=== PATIENT | female | born 1975 | race African-American/Black ===

== ENCOUNTER 2016-12-20 11:54 | Emergency (ER) | payer MEDICAID ==
[~2016-12-20] VITALS: Ht 152.4 cm; Wt 59.0 kg
[~2016-12-20 11:54] MED LIST: ALPR1TAB2; GABA800T97; MIRT30TA; NAP500T; PROZAC; QUET25TA37
[2016-12-20 12:58] VITALS: BP 152/82
== END 2016-12-20 13:26 | disposition home or self-care (01) ==
LOC: ER 11:54
DX: S16.1XXA Strain of muscle, fascia and tendon at neck level, initial encounter (principal); S39.012A Strain of muscle, fascia and tendon of lower back, initial encounter; V49.49XA Driver injured in collision with other motor vehicles in traffic accident, initial encounter; Y93.89 Activity, other specified; Y99.8 Other external cause status; Y92.410 Unspecified street and highway as the place of occurrence of the external cause

== ENCOUNTER 2025-06-10 16:08 | Emergency (ER) | payer MEDICAID ==
[~2025-06-10] VITALS: Ht 152.4 cm; Wt 60.0 kg
[~2025-06-10 16:08] MED LIST changes: +MIRT-94; -MIRT30TA
[2025-06-10 16:33] VITALS: BP 174/82; PULSE 96; RESP 16; TEMP 97.8; O2SAT 99
--- NOTE | 2025-06-10 17:02 | ED.PDOC ---
Musculoskeletal HPI Comments 50y F who presents to the ED via EMS for chief complaint of fall injury. Pt states she was at [facility] and states she slipped and fell in puddle of water. Pt states she fell on the R side to to help break her fall and denies hitting her head or any associated loss of consciousness. Pt states since fall, she has been having neck pain, head and pain and associated bilateral lower extremity pain by her ankles. Pt rates the pain 4/10, constant, with no associated exacerbating or relieving factors. Pt otherwise denies any other symptoms at this time. Chief Complaint: Fall Injury Time Seen by MD: 16:54 Primary Care Provider: NONE Reviewed Notes: Medications, Allergies Allergies: Coded Allergies: NO KNOWN ALLERGIES (Unverified , 03/25/13) Home Meds Reported Medications Naproxen (NAPROSYN TABLET) 500 Mg Tb 07/08/13 Quetiapine Fumerate (Seroquel) 25 Mg Tab 07/08/13 Gabapentin (Gabapentin) 800 Mg Tab 07/08/13 Mirtazapine (REMERON) 30 Mg Tab 07/08/13 Alprazolam (Xanax) 1 Mg Tab 07/08/13 [Prozac] No Conflict Check 07/08/13 Information Source: Patient Mode of Arrival: EMS Past Medical History PAST MEDICAL HISTORY: Depression Surgical History: Denies all surgeries TYPE COPYIST History: No Pertinent TYPE COPYIST History Family History Family History: Unobtainable Social History Smoker: Non-Smoker Lives In: Home Constitutional: denies: chills, diaphoresis, fatigue, fever, malaise, sweats, weakness, others EENTM: denies: blurred vision, double vision, ear bleeding, ear discharge, ear drainage, ear pain, ear ringing, eye pain, eye redness, hearing loss, mouth pain, mouth swelling, nasal discharge, nose bleeding, nose congestion, nose pain, photophobia, tearing, throat pain, throat swelling, voice changes, others Respiratory: denies: cough, hemoptysis, orthopnea, SOB at rest, shortness of breath, SOB with excertion, stridor, wheezing, others Cardiovascular: denies: chest pain, dizzy spells, diaphoresis, Dyspnea on exertion, edema, irregular heart beat, left arm pain, lightheadedness, palpitations, PND, syncope, others Gastrointestinal: denies: abdomen distended, abdominal pain, blood streaked bowels, constipated, diarrhea, dysphagia, difficulty swallowing, hematemesis, me rebecca, nausea, poor appetite, poor fluid intake, rectal bleeding, rectal pain, vomiting, others Genitourinary: denies: abnormal vagina bleeding, burning, dyspareunia, dysuria, flank pain, frequency, hematuria, incontinence, pain, , vagina discharge, urgency, others Neurological: denies: dizziness, fainting, headache, left sided numbness, left sided weakness, numbness, paresthesia, pre-existing deficit, right sided numbness, right sided weakness, seizure, speech problems, tingling, tremors, weakness, others Musculoskeletal: reports: back pain, joint pain (b/l lower extremities), neck pain; denies: gout, joint swelling, muscle pain, muscle stiffness, others Integumetry: denies: bruises, change in color, change in hair/nails, dryness, laceration, lesions, lumps, rash, wounds, others Allergic/Immunocompromised: denies: Difficulty Healing, Frequent Infections, Hives, Itching, others Hematologic/Lymphatic: denies: anemia, blood clots, easy bleeding, easy bruising, swollen glands, others Endocrine: denies: excessive hunger, excessive sweating, excessive thirst, excessive urination, flushing, intolerance to cold, intolerance to heat, unexplained weight gain, unexplained weight loss, others Psychiatric: denies: anxiety, bipolar disorder, depression, hopeless, panic disorder, schizophrenia, sleepless, suicidal, others All Other Systems: Reviewed and Negative Physical Exam General Appearance: Moderate Distress HEENT: Normal ENT Inspection, PERRL/EOMI Neck: Limited Range of Motion, Normal Inspection, Tender Lateral Respiratory: Chest Non-Tender, Lungs Clear, No Accessory Muscle Use, No Respiratory Distress, Normal Breath Sounds Cardiovascular: No Edema, No JVD, No Murmur, No Gallop, Normal Peripheral Pulses, Regular Rate/Rhythm Breast Exam: Deferred Gastrointestinal: No Organomegaly, Non Tender, No Pulsatile Mass, Normal Bowel Sounds, Soft Genitalia: Deferred Pelvic: Deferred Rectal: Deferred Extremities: Decreased range of motion, No calf tenderness, Normal capillary refill, Normal inspection, Non-tender, No pedal edema, Swelling, Tender Musculoskeletal : Location: Left Extremity Location: Foot Apperance: Limited ROM, Tenderness: Mild, Tenderness: Moderate Neurologic: Alert, film 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 Was a procedure done?: No Differential Diagnosis EXT Differential Diagnosis: Fracture, Sprain, Dislocation, Contusion Other Differential Diagnosis DJD, arthritis, muscle strain, muscle spasm, X-Ray, Labs, Meds, VS Vital Signs Date Time Temp Pulse Resp B/P (MAP) Pulse Ox O2 Delivery O2 Flow Rate FiO2 06/10/25 16:33 97.8 96 16 174/[address] [address] Ph: [phone] DIAGNOSTIC IMAGING Diagnostic Imaging Report : [id number] Signed PATIENT: BERRY CASTRO ACCT: [id number] UNIT: [id number] : 1975 LOC: ER ROOM / BED: / AGE / SEX: 50 / F ADM STATUS: REG ER SERVICE 49 ORDERING PHYSICIAN: CLARICE MARMOLEJO MD PROCEDURE(s): RFOOT - R FOOT 3 VIEW XRAY REASON: Acute fall ORDER NUMBER(s): [id number], ACCESSION NUMBER(s): [id number] CLINICAL INDICATION: Acute fall TECHNIQUE: 6 views of the right foot. Comparison: None FINDINGS/IMPRESSION: There is no evidence of acute fracture or dislocation. Soft tissues are unremarkable. ATED BY: BRAYDEN RODNEY MD DICTATED DATE/TIME: 06/10/251729 SIGNED BY: BRAYDEN RODNEY MD SIGNED DATE/TIME: 06/10/251729 CC: [address] [address] Ph: [phone] DIAGNOSTIC IMAGING Diagnostic Imaging Report : [id number] Signed PATIENT: BERRY CASTRO ACCT: [id number] UNIT: [id number] : 1975 LOC: ER ROOM / BED: / AGE / SEX: 50 / F ADM STATUS: REG ER SERVICE 49 ORDERING PHYSICIAN: CLARICE MARMOLEJO MD PROCEDURE(s): LFOOT - L FOOT 3 VIEW XRAY REASON: Acute fall ORDER NUMBER(s): [id number], ACCESSION NUMBER(s): [id number] CLINICAL INDICATION: Acute fall TECHNIQUE: 3-view left foot XY L FOOT 3 VIEW XRAY Comparison: None FINDINGS/IMPRESSION: : There is no evidence of acute fracture or dislocation. Soft tissues are unremarkable. ATED BY: NATIVIDAD DASILVA MD DICTATED DATE/TIME: 06/10/251726 SIGNED BY: NATIVIDAD DASILVA MD SIGNED DATE/TIME: 06/10/251726 CC: [place] [id number] Ph: [phone] DIAGNOSTIC IMAGING Diagnostic Imaging Report : [id number] Signed PATIENT: BERRY CASTRO ACCT: [id number] UNIT: [id number] : 1975 LOC: ER ROOM / BED: / AGE / SEX: 50 / F ADM STATUS: REG ER SERVICE 49 ORDERING PHYSICIAN: CLARICE MARMOLEJO MD PROCEDURE(s): CS2 - CERVICAL WITHOUT CONTRAST REASON: Acute fall ORDER NUMBER(s): [id number], ACCESSION NUMBER(s): [id number] EXAM: CT CERVICAL WITHOUT CONTRAST HISTORY: Acute fall COMPARISON: None CTDIvol 25.54 mGy, DLP 25.54 mGy*cm. TECHNIQUE: Multiple axial CT images of the spine were obtained using bone algorithm. Axial and coronal reformatting was done. Bone and soft tissue windows were reviewed. FINDINGS: No CT evidence of definite acute fracture, spinal dislocation, or significant appearing acute subluxation is seen. The visualized paraspinal soft tissues are grossly unremarkable. Patient is status fusion from C5-C7. Mild straightening of the normal cervical lordosis Orthopedic hardware demonstrates no loosening. There is bony fusion across the C5-6 and C6-7 disc spaces, centrally. Peripherally on the left side , the fusion is incomplete at this time. No acute vertebral body fracture. No subluxation. IMPRESSION: 1. No definite CT evidence of acute fracture or dislocation of the bony cervical spine. Orthopedic hardware intact without evidence of loosening. ATED BY: NATIVIDAD DASILVA MD DICTATED DATE/TIME: 06/10/251743 SIGNED BY: NATIVIDAD DASILVA MD SIGNED DATE/TIME: 06/10/251743 CC: X-Ray, Labs, Meds, VS Comment Course in the emergency department eventful patient came in because she fell slid and fell while walking there was water on the floor Right foot negative Left foot negative CT neck loss of curvature but everything else normal including her fusions Patient will be discharged home to follow up with her PCP Time of 1ST Reevaluation: 17:11 Reevaluation 1ST: Unchanged Time of 2ND Reevaluation: 19:31 Reevaluation 2ND: Improved Consultation: PCP Patient Education/Counseling: Diagnosis, Treatment, Prognosis, Need For Follow Up Family Education/Counseling: Diagnosis, Treatment, Prognosis, Need For Follow Up, No Family Present Departure 1 Departure Time of Disposition: 19:31 Impression: Primary Impression: Fall Qualified Codes: W19.XXXA - Unspecified fall, initial encounter Additional Impressions: Sprain of right foot Qualified Codes: S93.601A - Unspecified sprain of right foot, initial encounter Sprain of left foot Qualified Codes: S93.602A - Unspecified sprain of left foot, initial encounter Cervical paraspinal muscle spasm History of fusion of cervical spine Disposition: 01 HOME / SELF CARE / HOMELESS Condition: Fair Additional Instructions: Local heat to the neck and both feet and follow up with your PCP e-Prescriptions Cyclobenzaprine Hcl (Cyclobenzaprine Hcl) 10 Mg Tab 10 MG PO TID for 10 Days, #30 TAB Prov: CLARICE MARMOLEJO MD 06/10/25 Naproxen Sodium (Anaprox Ds) 550 Mg Tab 1 TAB PO [id number] for 10 Days, #20 TAB Prov: CLARICE MARMOLEJO MD 06/10/25 Discharged With: Self Critical Care Note Critical Care Time?: No Stability Stability form required: No Heart Score Heart Score: Heart Score Response (Comments) Value History N/A 0 EKG N/A 0 Age 45-64 1 Risk Factors No known risk factors 0 Troponin N/A 0 Total 1 I personally scribed for CLARICE MARMOLEJO MD ([email or web address]) on 06/10/25 at 17:02. Electronically submitted by Jerry Sims ([facility]). I personally scribed for CLARICE MARMOLEJO MD ([email or web address]) on 06/10/25 at 18:44. Electronically submitted by Jerry Sims ([facility]). CLARICE MARMOLEJO MD Jun 10, 2025 17:02
--- NOTE | 2025-06-10 17:30 | DVH ---
CLINICAL INDICATION: Acute fall TECHNIQUE: 3-view left foot XY L FOOT 3 VIEW XRAY Comparison: None FINDINGS/IMPRESSION: : There is no evidence of acute fracture or dislocation. Soft tissues are unremarkable.
--- NOTE | 2025-06-10 17:32 | DVH ---
CLINICAL INDICATION: Acute fall TECHNIQUE: 6 views of the right foot. Comparison: None FINDINGS/IMPRESSION: There is no evidence of acute fracture or dislocation. Soft tissues are unremarkable.
--- NOTE | 2025-06-10 17:47 | DVH ---
EXAM: CT CERVICAL WITHOUT CONTRAST HISTORY: Acute fall COMPARISON: None CTDIvol 25.54 mGy, DLP 25.54 mGy*cm. TECHNIQUE: Multiple axial CT images of the spine were obtained using bone algorithm. Axial and conteh l reformatting was done. Bone and soft tissue windows were reviewed. FINDINGS: No CT evidence of definite acute fracture, spinal dislocation, or significant appearing acu te subluxation is seen. The visualized paraspinal soft tissues are grossly unremarkable. Patient is status fusion from C5-C7. Mild straightening of the normal cervical lordosis Orthopedic hardware demonstrates no loosening. There is bony fusion across the C5-6 and C6-7 disc spa erasmo, centrally. Peripherally on the left side , the fusion is incomplete at this time. No acute vertebral body fracture. No subluxation. IMPRESSION: 1. No definite CT evidence of acute fracture or dislocation of the bony cervical spine. Orthopedic hardware intact without evidence of loosening.
[2025-06-10] MEDS ORDERED: CYCL-839 PO (19:36)
[2025-06-10] MEDS ORDERED: NAPR5TAB4 PO (19:36)
== END 2025-06-10 19:30 | disposition home or self-care (01) ==
LOC: ER 16:08 → EDBD 16:08 → ER 19:30
DX: S93.691A Other sprain of right foot, initial encounter (principal); S93.692A Other sprain of left foot, initial encounter; M62.838 Other muscle spasm; F32.A Depression, unspecified; Z79.899 Other long term (current) drug therapy; Z98.1 Arthrodesis status; W01.0XXA Fall on same level from slipping, tripping and stumbling without subsequent striking against object, initial encounter; Y93.01 Activity, walking, marching and hiking; Y92.89 Other specified places as the place of occurrence of the external cause; Y99.8 Other external cause status
CPT/HCPCS: 72125; 73630